=== PATIENT | female | born 1950 | race Caucasian/White ===

== ENCOUNTER → 2018-04-08 07:23 | Outpatient (CLI) | payer MEDICARE ==
[~2018-04-08 07:23] MED LIST: BAYER CHEWABLE81 MG PO; BENTYL10 MG PO; BREO ELLIPTA 21 EACH; CALTRATE 600 M600 M1 PO; CELEXA20 MG PO; HYDROCODONE-APA1 TAB PO; IPRAT-ALBUT 0.5-3 ML UPD; K-TAB10 MEQ PO; KLONOPIN0.5 MG PO; KLOR-CON20 MEQ/PKT PO; METHOTREXATE2.5 MG PO; METOPROLOL TART25 MG PO; NORVASC5 MG PO; PRAVASTATIN SOD10 MG PO; PROTONIX20 MG PO; ROBAXIN-750750 MG PO; SINGULAIR10 MG PO; VITAMIN D31000 UNIT PO
[2018-05-16 13:03] VITALS: BMI 19.2
== END | disposition home or self-care (01) ==
LOC: D.CT 07:23
DX: R74.8 Abnormal levels of other serum enzymes (principal)

== ENCOUNTER 2018-04-13 14:42 | Inpatient (IN) | payer MEDICARE ==
[~2018-04-13] VITALS: Ht 157.5 cm; Wt 47.3 kg
--- NOTE | ~2018-04-13 | EC ---
PATIENT:TOMMY NAVARRETE DATE OF SERVICE: 04/14/18 SEX: F MEDICAL RECORD: [id number] DATE OF : 54 LOCATION:D.M2 D.214 AGE OF PATIENT: 67 ADMISSION DATE: 04/14/18 REFERRING PHYSICIAN: INTERPRETING PHYSICIAN: ESTHER CASILLAS MD ECHOCARDIOGRAM REPORT ECHO CHARGES 4 ECHO COMPLETE Date: 04/15 CLINICAL DIAGNOSIS: PRE-OP EVAL ECHOCARDIOGRAPHIC MEASUREMENTS (adult normal given) AC root (d.<3.7cm) 3.2 cm LV Septum d (<1.2 cm> 1.3 cm Valve Excursion 2.0 cm LV Septum (systole) 1.5 cm Left Atria (s.<4.0cm> 3.6 cm LVPW d(<1.2cm) 1.2 cm RV (d.<2.3cm) 2.7 cm LVPW (sytole) 1.4 cm LV diastole(<5.6CM) 4.9 cm MV E-F(>70mm/sec) cm LV systole 3.5 cm LVOT Diameter 2.0 cm MV exc.(>10mm) 1.8 cm Est.ejection fraction (50-75%) % DOPPLER: LVIT cm/sec A 70.0 cm/sec E 84.0 cm/sec LA cm/sec RVSP 30 mmHg LVOT 94 cm/sec AOP1/2T m/s Asc. Ao 109 cm/sec RVOT 66 cm/sec RA 76 cm/sec PA cm/sec AV Gradient Peak 4.79 mmHg AV Mean 2.11 mmHg AV Area 2.6 cm MV Gradient Peak 4.97 mmHg MV Mean 1.90 mmHg MV Area cm COMMENTS: Mobile Homes Repairer: Maureen ADRIAN Fashion Editor: 2 Dr. Melton TAPE# PACS Pericardial Effusion N DATE OF SERVICE: 04/15/2018 Echocardiogram FINDINGS: 1. Left ventricular chamber size is within normal limits. Left ventricular systolic function is normal. Overall ejection fraction estimated at 60%. 2. Left atrium, right atrium, and right ventricular chamber sizes are within normal limits. 3. Valvular structures have normal structure and motion. ECHOCARDIOGRAM REPORT [id number] TOMMY NAVARRETE 4. Doppler interrogation reveals mild mitral regurgitation, mild tricuspid regurgitation, no other valvular insufficiency or stenosis. 5. No evidence of pericardial effusion or left ventricular thrombus. 6. Pulmonary systolic pressure is normal, estimated 30 mmHg. TRANSINT:[id number] Voice Confirmation ID: [id number] DOCUMENT ID: [id number] SETHER CASILLAS MD at 1710 CC: [id number] DICTATION DATE: 04/15/18 1356 PROFILER HAND: 04/15/18 1424 DIS IN 04/15/18 [facility] [address] [facility], [facility]
[2018-04-13] MEDS ORDERED: IPRAT-ALBUT 0.5-3 ML UPD (15:11)
[2018-04-13] MEDS ORDERED: BREO ELLIPTA 21 EACH (15:12)
[2018-04-13] MEDS ORDERED: CALTRATE 600 M600 M1 PO (15:13)
[2018-04-13] MEDS ORDERED: BAYER CHEWABLE81 MG PO (15:13)
[2018-04-13] MEDS ORDERED: VITAMIN D31000 UNIT PO (15:14)
[2018-04-13] MEDS ORDERED: BENTYL10 MG PO (15:15)
[2018-04-13] MEDS ORDERED: K-TAB10 MEQ PO (15:16)
[2018-04-13] MEDS ORDERED: KLONOPIN0.5 MG PO (15:16)
[2018-04-13 16:24] LABS: BASOPHILS 0.7 % (0-2); EOSINOPHILS 1.2 % (0-7); HEMATOCRIT 29.4 % (36.0-48.0); HEMOGLOBIN 10.2 g/dL (12-16); IMMATURE GRANULOCYTES 0.4 % (0-5); LYMPHOCYTES 17.2 % (15-50); MCH 30.5 pg (26.0-34.0); MCHC 34.7 g/dL (31.0-37.0); MEAN PLATELET VOLUME 10.9 fL (7.4-10.4); MONOCYTES 12.6 % (2-11); NEUTROPHILS 67.9 % (40-80); PLATELET COUNT 326 10x3/uL (130-400); RBC 3.34 10x6/uL (4.00-5.40); RDW 17.9 % (11.5-14.5); WBC 7.7 10x3/uL (4.8-10.8)
[2018-04-13 16:33] LABS: APTT 30.1 SECONDS (22.8-39.4); INR 1.21 (0.85-1.17); PROTIME 14.9 SECONDS (11.6-15.0)
[2018-04-13 16:38] LABS: ALBUMIN 2.2 g/dL (3.4-5.0); ALKALINE PHOSPHATASE 869 U/L (46-116); ALT (SGPT) 87 U/L (10-68); AMYLASE - SERUM 44 U/L (25-115); BILIRUBIN - TOTAL 15.79 mg/dL (0.2-1.3); CALC OSMOLALITY 276 mosm/kg (275-300); CALCIUM 8.8 mg/dL (8.5-10.1); CARBON DIOXIDE 29.2 mmol/L (21.0-32.0); CHLORIDE - SERUM 101 mmol/L (98-107); CREATININE - SERUM 0.6 mg/dL (0.6-1.3); GLUCOSE 123 mg/dL (74-106); LIPASE 231 U/L (73-393); PROTEIN - SERUM 6.5 g/dL (6.4-8.2); SODIUM 139 mmol/L (136-145); UREA NITROGEN 6 mg/dL (7-18); eGFR NON AFRICAN AMERICAN > 90 mL/min (90-120)
[2018-04-13 16:43] LABS: POTASSIUM - SERUM 2.7 mmol/L (3.5-5.1)
[2018-04-13 17:15] VITALS: BP 120/59; BMI 19.1
[2018-04-13 20:00] VITALS: BP 152/68
[2018-04-13 21:55] LABS: APPEARANCE CLEAR (CLEAR); BILIRUBIN 3+ (NEGATIVE); COLOR DK YELLOW (YELLOW); GLUCOSE NEGATIVE (NEGATIVE); KETONE NEGATIVE (NEGATIVE); NITRITE NEGATIVE (NEGATIVE); PROTEIN NEGATIVE (NEGATIVE); UROBILINOGEN NORMAL (NORMAL)
[2018-04-13 21:56] LABS: BACTERIA FEW /hpf (NONE SEEN); EPITHELIAL CELLS OCC /hpf (0-5); WHITE CELLS - URINE 0-5 /hpf (0-5)
[2018-04-14] VITALS (7 sets, daily range): BP systolic 108–152; BP diastolic 58–80; Ht 157.5 cm; Wt 47.3 kg
[2018-04-14 06:18] LABS: BASOPHILS 0.6 % (0-2); EOSINOPHILS 1.7 % (0-7); HEMATOCRIT 29.4 % (36.0-48.0); IMMATURE GRANULOCYTES 0.4 % (0-5); LYMPHOCYTES 26.3 % (15-50); MCV 88.3 fL (80.0-100.0); MEAN PLATELET VOLUME 11.2 fL (7.4-10.4); MONOCYTES 10.4 % (2-11); NEUTROPHILS 60.6 % (40-80); PLATELET COUNT 351 10x3/uL (130-400); RBC 3.33 10x6/uL (4.00-5.40); RDW 18.1 % (11.5-14.5); WBC 8.5 10x3/uL (4.8-10.8)
[2018-04-14 06:38] LABS: INR 1.17 (0.85-1.17); PROTIME 14.5 SECONDS (11.6-15.0)
[2018-04-14 07:04] LABS: ALBUMIN 2.1 g/dL (3.4-5.0); ALKALINE PHOSPHATASE 856 U/L (46-116); ALT (SGPT) 76 U/L (10-68); CALCIUM 8.6 mg/dL (8.5-10.1); CARBON DIOXIDE 24.5 mmol/L (21.0-32.0); CHLORIDE - SERUM 106 mmol/L (98-107); GLUCOSE 93 mg/dL (74-106); PROTEIN - SERUM 6.2 g/dL (6.4-8.2); SODIUM 140 mmol/L (136-145)
[2018-04-14 07:09] LABS: CALC OSMOLALITY 275 mosm/kg (275-300); CREATININE - SERUM 0.4 mg/dL (0.6-1.3); POTASSIUM - SERUM 3.3 mmol/L (3.5-5.1); UREA NITROGEN 4 mg/dL (7-18); eGFR NON AFRICAN AMERICAN > 90 mL/min (90-120)
[2018-04-15 01:31] VITALS: BP 116/54
[2018-04-15 06:06] VITALS: BP 118/58
[2018-04-15 06:08] LABS: BASOPHILS 0.5 % (0-2); EOSINOPHILS 2.6 % (0-7); HEMATOCRIT 26.7 % (36.0-48.0); IMMATURE GRANULOCYTES 0.5 % (0-5); LYMPHOCYTES 27.6 % (15-50); MCH 30.4 pg (26.0-34.0); MCHC 33.7 g/dL (31.0-37.0); MCV 90.2 fL (80.0-100.0); MEAN PLATELET VOLUME 11.5 fL (7.4-10.4); MONOCYTES 11.1 % (2-11); NEUTROPHILS 57.7 % (40-80); PLATELET COUNT 336 10x3/uL (130-400); RBC 2.96 10x6/uL (4.00-5.40); RDW 18.1 % (11.5-14.5); WBC 7.9 10x3/uL (4.8-10.8)
[2018-04-15 06:31] LABS: ALKALINE PHOSPHATASE 714 U/L (46-116); ALT (SGPT) 56 U/L (10-68); CALC OSMOLALITY 274 mosm/kg (275-300); CALCIUM 8.7 mg/dL (8.5-10.1); CARBON DIOXIDE 25.4 mmol/L (21.0-32.0); CHLORIDE - SERUM 108 mmol/L (98-107); CREATININE - SERUM 0.4 mg/dL (0.6-1.3); GLUCOSE 80 mg/dL (74-106); POTASSIUM - SERUM 3.4 mmol/L (3.5-5.1); PROTEIN - SERUM 5.8 g/dL (6.4-8.2); SODIUM 140 mmol/L (136-145); UREA NITROGEN 3 mg/dL (7-18); eGFR NON AFRICAN AMERICAN > 90 mL/min (90-120)
[2018-04-15] MEDS ORDERED: METHOTREXATE2.5 MG PO (07:43)
[2018-04-15] MEDS ORDERED: METOPROLOL TART25 MG PO (07:44)
[2018-04-15] MEDS ORDERED: PRAVASTATIN SOD10 MG PO (07:44)
[2018-04-15] MEDS ORDERED: HYDROCODONE-APA1 TAB PO (07:45)
[2018-04-15] MEDS ORDERED: CELEXA20 MG PO (07:45)
[2018-04-15] MEDS ORDERED: ROBAXIN-750750 MG PO (07:46)
[2018-04-15] MEDS ORDERED: NORVASC5 MG PO (07:47)
[2018-04-15] MEDS ORDERED: PROTONIX20 MG PO (07:47)
[2018-04-15 07:54] VITALS: BP 122/68
[2018-04-15 11:20] LABS: ALPHA FETOPROTEIN -(TUMOR MRK) 3.4 ng/mL (0.0-8.3); CEA 6.3 ng/mL (0.0-4.7)
[2018-04-15 11:44] VITALS: BP 123/70
[2018-04-16 12:17] LABS: HEPATITIS C ANTIBODY 0.1 (0.0-0.9)
[2018-05-12] MEDS ORDERED: KLOR-CON20 MEQ/PKT PO (12:04)
[2018-05-12] MEDS ORDERED: SINGULAIR10 MG PO (12:08)
== END 2018-04-15 15:12 | disposition home or self-care (01) | DRG 439 ==
LOC: D.M2 14:42 → OBSVTIME 14:42 → D.M2 14:42
PROVIDERS: Family Medicine; Internal Medicine Gastroenterology; Internal Medicine Hematology & Oncology; Internal Medicine Nephrology
PROC: 0F798DZ Dilation of Common Bile Duct with Intraluminal Device, Via Natural or Artificial Opening Endoscopic (ICD-10-PCS; 2018-04-14)
PROC: 0FBC8ZX Excision of Ampulla of Vater, Via Natural or Artificial Opening Endoscopic, Diagnostic (ICD-10-PCS; principal; 2018-04-14 14:30)
DX: D13.6 Benign neoplasm of pancreas (principal); R17 Unspecified jaundice; E80.6 Other disorders of bilirubin metabolism; J44.9 Chronic obstructive pulmonary disease, unspecified; D64.9 Anemia, unspecified; E87.6 Hypokalemia; K21.9 Gastro-esophageal reflux disease without esophagitis; J30.9 Allergic rhinitis, unspecified; I08.1 Rheumatic disorders of both mitral and tricuspid valves

== ENCOUNTER 2018-05-13 07:15 | Inpatient (IN) | payer MEDICARE ==
[2018-05-12 12:51] LABS: BASOPHILS 0.6 % (0-2); HEMATOCRIT 32.8 % (36.0-48.0); HEMOGLOBIN 11.1 g/dL (12-16); IMMATURE GRANULOCYTES 0.2 % (0-5); LYMPHOCYTES 29.2 % (15-50); MCH 32.1 pg (26.0-34.0); MCHC 33.8 g/dL (31.0-37.0); MCV 94.8 fL (80.0-100.0); MEAN PLATELET VOLUME 9.9 fL (7.4-10.4); MONOCYTES 7.8 % (2-11); NEUTROPHILS 60.2 % (40-80); PLATELET COUNT 290 10x3/uL (130-400); RBC 3.46 10x6/uL (4.00-5.40); RDW 14.8 % (11.5-14.5); WBC 8.4 10x3/uL (4.8-10.8)
[2018-05-12 13:08] LABS: ALBUMIN 2.7 g/dL (3.4-5.0); ALKALINE PHOSPHATASE 349 U/L (46-116); ALT (SGPT) 20 U/L (10-68); BILIRUBIN - TOTAL 1.42 mg/dL (0.2-1.3); CALC OSMOLALITY 279 mosm/kg (275-300); CALCIUM 8.7 mg/dL (8.5-10.1); CARBON DIOXIDE 28.9 mmol/L (21.0-32.0); CHLORIDE - SERUM 105 mmol/L (98-107); CREATININE - SERUM 0.6 mg/dL (0.6-1.3); GLUCOSE 98 mg/dL (74-106); POTASSIUM - SERUM 3.9 mmol/L (3.5-5.1); PROTEIN - SERUM 6.8 g/dL (6.4-8.2); SODIUM 142 mmol/L (136-145); UREA NITROGEN 4 mg/dL (7-18); eGFR NON AFRICAN AMERICAN > 90 mL/min (90-120)
[2018-05-13] VITALS (18 sets, daily range): BP systolic 65–160; BP diastolic 46–84; BMI 17.9; BMI 18.7
[~2018-05-13] VITALS: Ht 157.5 cm; Wt 79.8 kg
--- NOTE | ~2018-05-13 | DS ---
PATIENT:TOMMY NAVARRETE :54 MEDICAL RECORD: [id number] DISCHARGE SUMMARY ADMISSION DATE: 05/13/18 DISCHARGE DATE: 05/18/18 DATE OF ADMISSION: 05/13/2018 DATE OF : 05/18/2018 ADMISSION DIAGNOSES: 1. Pancreatic cancer. 2. Chronic obstructive pulmonary disease. DISCHARGE DIAGNOSES: 1. Pancreatic cancer. 2. Chronic obstructive pulmonary disease. 3. Shock liver. 4. Septic shock. 5. Coagulopathy secondary to shock liver. 6. Thrombocytopenia. 7. Bacteremia. 8. Acute renal failure. 9. Acute respiratory failure. PROCEDURE: Whipple procedure on 05/13/2018. CONSULTATIONS: Pulmonary, nephrology, family practice, and anesthesia. REPORT OF HOSPITALIZATION: The patient was admitted to the intensive care unit status post a Whipple procedure for pancreatic head cancer. During the procedure, the patient's the hepatic artery proper had to be ligated secondary to what appeared to be tumor involvement. Postoperatively, the patient had shock liver and eventually developed bacteremia secondary to the shock liver, which caused septic shock. The patient went into acute renal failure and respiratory failure. The patient had a known history of lung disease with COPD. At this point, the patient was intubated and maintained on the ventilator and was stable from that standpoint. The patient's condition worsened quickly, but eventually had leveled out. She was at one point on vasopressin and Levophed at maxed out doses, but we were able to wean these completely off. The patient was noted to have blood cultures with gram-negative rods and she was treated with cefepime for the bacteremia. Her fevers eventually resolved. Her blood pressure stabilized. Her liver enzymes got markedly elevated, but these were coming down sharply and were getting back towards normal. The patient had coagulopathy secondary to the shock liver, which was treated with FFP. The coagulopathy appeared to be improving slowly. The patient did have acute renal failure, which never did improve throughout the hospitalization. She was oliguric to anuric. Her potassium was staying within normal range though. The patient was also noted to have a severe metabolic acidosis with elevated lactic acid levels of greater than 20. The patient was given a bicarb drip and her pH level was normalized with the bicarb drip and with manipulation of the ventilator. The patient was also noted to have a decreased platelet count, which was thought might be related to sepsis or possibly Protonix. The Protonix was stopped. She was placed on Pepcid and the platelet count slowly started to rise back up. The family eventually decided that they just wanted to withdraw care and after speaking with some of the other physicians, decided to perform a terminal extubation. On 05/18/2018, the patient was terminally extubated and DISCHARGE SUMMARY REPORT [id number] LANDONTOMMY Miryam she . TRANSINT:[id number] Voice Confirmation ID: [id number] DOCUMENT ID: [id number] HUGO SYKES MD at 1041 CC: [id number] DICTATION DATE: 06/22/18 0820 DEPUTY ATTORNEY GENERAL: 06/22/18 1334 DIS IN 05/18/18 [id number] [place] [address]
--- NOTE | ~2018-05-13 | OP ---
PATIENT NAME: TOMMY NAVARRETE MEDICAL RECORD: [id number] :54 LOCATION:.[facility] D.2301 ADMISSION DATE:05/13/18 SURGEON: EDWARDO SYKES MD DATE OF OPERATION: 05/13/2018 PREOPERATIVE DIAGNOSES: 1. Pancreatic mass. 2. COPD. 3. Osteoporosis. 4. Mitral regurgitation. 5. Tricuspid regurgitation. POSTOPERATIVE DIAGNOSES: 1. Pancreatic cancer. 2. COPD. 3. Osteoporosis. 4. Mitral regurgitation. 5. Tricuspid regurgitation. PROCEDURES: 1. Whipple procedure. 2. Small bowel resection. 3. Right subclavian vein central venous line placement. SURGEON: Edwardo Sykes MD ASSISTANTS: 1. Amber Valenzuela, HARRY 2. GERARD Morales student REPORT OF OPERATION: The patient's right chest was prepped and draped in sterile fashion. A needle was used to cannulate the right subclavian vein and a guidewire was advanced with ease. Over this wire, a dilator was placed followed by the triple-lumen catheter. The catheter aspirated nonpulsatile dark blood and flushed easily in all 3 ports. This was sutured into place with 3-0 silk ties and dressed appropriately. At this point, the patient's abdomen was prepped and draped in sterile fashion. A midline incision was performed from the sternum down to just below the patient's umbilicus. Electrocautery was used to dissect through the subcutaneous tissues into the abdominal cavity. Once in the abdomen, we extended the incision superiorly and inferiorly and took down any adhesions that were present to the anterior abdominal wall. Most of these adhesions were of the omentum to the previous scar in the midline. The patient's falciform ligament was then opened up and was high ligated with 3-0 silk tie at the liver. The adhesions were taken down on the hepatic flexure. As we took down these adhesions, we were able to dissect out the patient's duodenum and performed a Wisam maneuver. At this point, we could feel that we could get posterior to the mass and it was not adherent to any structures posteriorly. At this point, we did a dome down approach removal of the gallbladder. We used electrocautery to take the gallbladder off the liver bed. The cystic artery and cystic duct were found and clipped proximally and distally and ligated. The liver bed was treated with electrocautery to stop any bleeding that was present. At this point, we came around the patient's portal vein and common bile duct. The common bile duct was dissected free. Once we had it completely dissected free, it was ligated just above the cystic duct. This was done using electrocautery. We then continued our dissection laterally until we OPERATIVE REPORT [id number] TOMMY NAVARRETE dissected out the patient's hepatic vessels and the portal vein. We then elevated the superior aspect of the pancreas off of the portal vein. We then opened up the lesser curvature of the stomach. I was able to get into the lesser sac. This was performed with EnSeal device. The inferior aspect of the pancreas was freed up using electrocautery and we were able to find the portal vessel. We dissected inferior to the portal vessel and eventually we were able to get completely over the portal vessel underneath the pancreas. At this point, the pancreas was transected using electrocautery. The stomach was then transected, performing an antrectomy using a 70 green load MANDY stapler. We began our dissection of the small bowel just distal to the ligament of Treitz. This ligament of Treitz was taken down using electrocautery. We eventually transected the small bowel using a 70 blue load MANDY stapler and took down the mesentery using the EnSeal device. We continued this dissection until we are able to eviscerate the small bowel through the ligament of Treitz into the lesser sac. We then started our dissection of the posterior aspect of the mass, trying to take it off of the portal vein. At this point, we ran into a lot of adhesions. The patient also had some large lymphatic tissue that was present. Some of the lymph nodes from the periportal area were taken off. As we dissected down to the portal vein, we actually had such dense adhesions and thickening of the tissue that we had to shave off a piece of the portal vein. This was eventually repaired using a 30 white load TA stapler and 7-0 Prolene sutures. This discontinued any bleeding from that area. The pancreatic lesion appeared to encompass portion of the mesenteric veins. In order to get this tissue off, we had to ligate 2 of these veins. We continued our dissection superiorly and the gastroduodenal artery was dissected free and ligated. As we continued our dissection down, we eventually were able to get the remaining celiac trunk off of the surrounding vessels, and at this point, we were able to completely free up the mass from the surrounding tissues. Any bleeding vessels that were encountered were treated with clips, ties, or electrocautery. We sent the mass off to pathology, where they inspected the biliary duct and the pancreatic margins. 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 New margin of pancreas was taken after we removed about another centimeter of pancreatic tissue. This was marked appropriately and sent off for permanent specimen. There was some inflammatory tissue which appeared to be enlarged lymph nodes present in the area. As I tried to dissect one of the lymph nodes off of the celiac trunk, there was an injury to the trunk. I was able to contain this bleeding and repaired the opening in the vessel using a 7-0 Prolene; but after we released the clamps, we could see that there were multiple other areas where there was injury to the vessel, so we ended up just ligating this vessel. At this point, we irrigated out the wound thoroughly with normal saline and took care to make sure there was no sign of any active bleeding. The small bowel was then pulled up in a retrocolic fashion, and using a 70 blue load MANDY stapler, we performed gastrojejunostomy on the posterior aspect of the stomach. The enterotomy was closed off with TA-30 stapler and the suture lines were oversewn with Lemberted 3-0 silk. We then transected the small bowel about 40 cm distally and pulled up the small bowel and performed a jejunojejunostomy in a [id number] fashion using a 70 blue load MANDY stapler. The enterotomies were closed with 30 blue load TA stapler and oversewn with Lemberted 3-0 silk. At this point, we noticed that this segment of bowel from the stomach to the jejunostomy appeared to be very dusky with petechia. As we looked down at the vasculature, I could feel a palpable arterial pulse, but the venous structures which were draining this area where the vessels that had been tied off previously. We went ahead and just released the anastomoses and excised this section of tissue and sent it off for permanent specimen as I did not feel that this would be a viable section of small bowel. OPERATIVE REPORT [id number] TOMMY NAVARRETE We then brought the end of the small bowel up and performed a handsewn 2-layer gastrojejunostomy with internal layer of 3-0 Vicryl and external layer of Lemberted 3-0 silk. This again was done in a retrocolic fashion. We then transected the area of small bowel where the jejunojejunostomy had been performed and we then performed reanastomosis of the jejunojejunostomy distally using a 70 blue load TA stapler. The enterotomies were then closed with a 30 blue load TA stapler. I oversewed the suture lines using Lemberted 3-0 silk. This bowel all appeared to be viable. The [place] limb of the small bowel was then brought in a retrocolic fashion and a small opening was made in the small bowel and hepaticojejunostomy was performed using multiple interrupted 4-0 PDS's. A 2-layer anastomosis was performed for pancreaticojejunostomy using an internal layer of interrupted 5-0 Monocryl and external layer of horizontal mattress 3-0 silk. At the conclusion of this, we irrigated out the wound and checked to make sure there was no sign of any active bleeding. Aoy12-Qplpki Estuardo drains were brought in through the bilateral upper quadrants with the right upper quadrant drain placed posterior to all of the anastomoses and the left upper quadrant drain placed anterior to all of the anastomoses. These were sutured into place with 4-0 Prolene. We inspected the abdomen one last time and irrigated out thoroughly with normal saline. At this point, the midline fascia was closed with running #1 loop PDS's times 2 and the skin was closed with brent. COMPLICATIONS: Small bowel ischemia, requiring small bowel resection. CONDITION: Stable. ANESTHESIA: General endotracheal and epidural. BLOOD LOSS: 500 mL. The patient will be transferred to the intensive care unit. TRANSINT:[id number] Voice Confirmation ID: [id number] DOCUMENT ID: [id number] EDWARDO SYKES MD at 2000 CC: TAYLOR MCWILLIAMS and LYLE OROPEZA DO [id number] DICTATION DATE: 05/13/181942 RAILROAD SHOP INSPECTOR: 05/13/182030 ADM IN [facility] [address] [place] [address]
[2018-05-13] MEDS ORDERED: BENTYL10 MG PO (08:47)
[2018-05-13 20:36] LABS: BASOPHILS 0 % (0-2); EOSINOPHILS 0.2 % (0-7); HEMATOCRIT 34.6 % (36.0-48.0); HEMOGLOBIN 11.4 g/dL (12-16); IMMATURE GRANULOCYTES 0.2 % (0-5); LYMPHOCYTES 17.4 % (15-50); MCH 30.7 pg (26.0-34.0); MCHC 32.9 g/dL (31.0-37.0); MCV 93.3 fL (80.0-100.0); MEAN PLATELET VOLUME 10.3 fL (7.4-10.4); MONOCYTES 5.2 % (2-11); PLATELET COUNT 174 10x3/uL (130-400); RBC 3.71 10x6/uL (4.00-5.40); RDW 16.2 % (11.5-14.5); WBC 5.8 10x3/uL (4.8-10.8)
[2018-05-13 20:46] LABS: APTT 39.1 SECONDS (22.8-39.4); INR 1.55 (0.85-1.17); PROTIME 18.1 SECONDS (11.6-15.0)
[2018-05-13 20:53] LABS: ALKALINE PHOSPHATASE 185 U/L (46-116); BILIRUBIN - TOTAL 1.89 mg/dL (0.2-1.3); CALC OSMOLALITY 294 mosm/kg (275-300); CALCIUM 7.3 mg/dL (8.5-10.1); CARBON DIOXIDE 22.9 mmol/L (21.0-32.0); CREATININE - SERUM 0.5 mg/dL (0.6-1.3); GLUCOSE 140 mg/dL (74-106); POTASSIUM - SERUM 4.1 mmol/L (3.5-5.1); SODIUM 149 mmol/L (136-145); UREA NITROGEN 5 mg/dL (7-18); eGFR NON AFRICAN AMERICAN > 90 mL/min (90-120)
[2018-05-13 20:55] LABS: ALBUMIN 1.5 g/dL (3.4-5.0); ALT (SGPT) 148 U/L (10-68); CHLORIDE - SERUM 117 mmol/L (98-107); PROTEIN - SERUM 4.2 g/dL (6.4-8.2)
[2018-05-14] VITALS (22 sets, daily range): BP systolic 55–196; BP diastolic 37–82; BMI 19.2
[2018-05-14 00:43] LABS: HEMATOCRIT 31.5 % (36.0-48.0); HEMOGLOBIN 10.2 g/dL (12-16)
[2018-05-14 04:28] LABS: BASOPHILS 0.3 % (0-2); EOSINOPHILS 0 % (0-7); HEMATOCRIT 27.3 % (36.0-48.0); HEMOGLOBIN 8.9 g/dL (12-16); IMMATURE GRANULOCYTES 0.3 % (0-5); LYMPHOCYTES 16.5 % (15-50); MCH 30.5 pg (26.0-34.0); MCHC 32.6 g/dL (31.0-37.0); MCV 93.5 fL (80.0-100.0); MEAN PLATELET VOLUME 10.1 fL (7.4-10.4); MONOCYTES 8.8 % (2-11); NEUTROPHILS 74.1 % (40-80); RDW 17.3 % (11.5-14.5)
[2018-05-14 04:29] LABS: PLATELET COUNT 116 10x3/uL (130-400); RBC 2.92 10x6/uL (4.00-5.40); WBC 3.6 10x3/uL (4.8-10.8)
[2018-05-14 04:44] LABS: APTT 49.9 SECONDS (22.8-39.4); INR 2.43 (0.85-1.17); PROTIME 25.8 SECONDS (11.6-15.0)
[2018-05-14 04:57] LABS: ALBUMIN 1.2 g/dL (3.4-5.0); ALKALINE PHOSPHATASE 139 U/L (46-116); BILIRUBIN - TOTAL 1.77 mg/dL (0.2-1.3); CHLORIDE - SERUM 114 mmol/L (98-107); CREATININE - SERUM 0.6 mg/dL (0.6-1.3); MAGNESIUM - SERUM 1.3 mg/dL (1.8-2.4); PHOSPHOROUS 3.2 mg/dL (2.5-4.9); PROTEIN - SERUM 3.2 g/dL (6.4-8.2); SODIUM 146 mmol/L (136-145); UREA NITROGEN 5 mg/dL (7-18); eGFR NON AFRICAN AMERICAN > 90 mL/min (90-120)
[2018-05-14 05:07] LABS: ALT (SGPT) 358 U/L (10-68); CALC OSMOLALITY 285 mosm/kg (275-300); CALCIUM 6.7 mg/dL (8.5-10.1); GLUCOSE 65 mg/dL (74-106)
[2018-05-14 14:10] LABS: BASOPHILS 0.2 % (0-2); EOSINOPHILS 0.2 % (0-7); HEMATOCRIT 22.6 % (36.0-48.0); IMMATURE GRANULOCYTES 0.2 % (0-5); LYMPHOCYTES 11.7 % (15-50); MCH 30.4 pg (26.0-34.0); MCHC 32.3 g/dL (31.0-37.0); MCV 94.2 fL (80.0-100.0); MEAN PLATELET VOLUME 10.8 fL (7.4-10.4); MONOCYTES 6.2 % (2-11); NEUTROPHILS 81.5 % (40-80); PLATELET COUNT 121 10x3/uL (130-400); RDW 17.7 % (11.5-14.5)
[2018-05-14 14:26] LABS: HEMOGLOBIN 7.3 g/dL (12-16); INR 1.71 (0.85-1.17); PROTIME 19.6 SECONDS (11.6-15.0); WBC 5.3 10x3/uL (4.8-10.8)
[2018-05-14 14:27] LABS: APTT 39.3 SECONDS (22.8-39.4)
[2018-05-14 14:51] LABS: ANION GAP 17.7 mmol/L (8-16); BILIRUBIN - TOTAL 1.55 mg/dL (0.2-1.3); MAGNESIUM - SERUM 1.6 mg/dL (1.8-2.4); PHOSPHOROUS 3.4 mg/dL (2.5-4.9); POTASSIUM - SERUM 3.7 mmol/L (3.5-5.1)
[2018-05-14 14:54] LABS: ALBUMIN 1.7 g/dL (3.4-5.0); CALCIUM 8.4 mg/dL (8.5-10.1); CREATININE - SERUM 1.3 mg/dL (0.6-1.3)
[2018-05-15] VITALS (73 sets, daily range): BP systolic 69–123; BP diastolic 25–87
[2018-05-15 04:59] LABS: MCH 30.3 pg (26.0-34.0); MCHC 34.3 g/dL (31.0-37.0); MEAN PLATELET VOLUME 11.3 fL (7.4-10.4); PLATELET COUNT 111 10x3/uL (130-400); RDW 17.3 % (11.5-14.5)
[2018-05-15 05:03] LABS: HEMATOCRIT 28.9 % (36.0-48.0); HEMOGLOBIN 9.9 g/dL (12-16); MCV 88.4 fL (80.0-100.0); RBC 3.27 10x6/uL (4.00-5.40); WBC 2.5 10x3/uL (4.8-10.8)
[2018-05-15 05:23] LABS: INR 2.19 (0.85-1.17); PROTIME 23.7 SECONDS (11.6-15.0)
[2018-05-15 05:28] LABS: ALBUMIN 1.6 g/dL (3.4-5.0); BILIRUBIN - TOTAL 2.28 mg/dL (0.2-1.3); CALCIUM 8.5 mg/dL (8.5-10.1); CREATININE - SERUM 1.6 mg/dL (0.6-1.3); POTASSIUM - SERUM 3.2 mmol/L (3.5-5.1); PROTEIN - SERUM 4.2 g/dL (6.4-8.2)
[2018-05-15 06:06] LABS: MAGNESIUM - SERUM 2.3 mg/dL (1.8-2.4)
[2018-05-15 06:07] LABS: ANION GAP 13.7 mmol/L (8-16); CARBON DIOXIDE 20.5 mmol/L (21.0-32.0); PHOSPHOROUS 1.1 mg/dL (2.5-4.9)
[2018-05-15 06:52] LABS: LYMPHOCYTES 19 % (15-50); MONOCYTES 2 % (2-11); NEUTROPHILS 41 % (40-80); PLATELET ESTIMATE DECREASED
[2018-05-15 14:20] LABS: BASOPHILS 0.2 % (0-2); EOSINOPHILS 0.4 % (0-7); HEMATOCRIT 24.4 % (36.0-48.0); HEMOGLOBIN 8.2 g/dL (12-16); IMMATURE GRANULOCYTES 0.5 % (0-5); LYMPHOCYTES 10.7 % (15-50); MCH 29.9 pg (26.0-34.0); MCHC 33.6 g/dL (31.0-37.0); MCV 89.1 fL (80.0-100.0); MEAN PLATELET VOLUME 11.3 fL (7.4-10.4); MONOCYTES 5.3 % (2-11); NEUTROPHILS 82.9 % (40-80); RBC 2.74 10x6/uL (4.00-5.40); RDW 17.3 % (11.5-14.5)
[2018-05-15 14:25] LABS: PLATELET COUNT 64 10x3/uL (130-400); WBC 9.2 10x3/uL (4.8-10.8)
[2018-05-15 14:36] LABS: INR 2.11 (0.85-1.17)
[2018-05-15 14:37] LABS: APTT 56.2 SECONDS (22.8-39.4)
[2018-05-15 14:47] LABS: PLATELET ESTIMATE DECREASED
[2018-05-15 15:20] LABS: ALBUMIN 1.8 g/dL (3.4-5.0); ANION GAP 17.3 mmol/L (8-16); BILIRUBIN - TOTAL 2.02 mg/dL (0.2-1.3); CALCIUM 8.4 mg/dL (8.5-10.1); CARBON DIOXIDE 18.7 mmol/L (21.0-32.0); MAGNESIUM - SERUM 2.3 mg/dL (1.8-2.4)
[2018-05-15 15:34] LABS: CREATININE - SERUM 2.3 mg/dL (0.6-1.3)
[2018-05-15 23:50] LABS: HEMATOCRIT 20.6 % (36.0-48.0)
[2018-05-15 23:52] LABS: HEMOGLOBIN 6.7 g/dL (12-16)
[2018-05-16] VITALS (93 sets, daily range): BP systolic 73–154; BP diastolic 51–95; Ht 157.5 cm; Wt 79.8 kg
[2018-05-16 05:49] LABS: APTT 76.6 SECONDS (22.8-39.4); PROTIME 30.4 SECONDS (11.6-15.0)
[2018-05-16 06:04] LABS: BASOPHILS 0.7 % (0-2); EOSINOPHILS 0.8 % (0-7); IMMATURE GRANULOCYTES 7.6 % (0-5); LYMPHOCYTES 11.4 % (15-50); MCH 29.7 pg (26.0-34.0); MCHC 30.7 g/dL (31.0-37.0); MEAN PLATELET VOLUME 13.3 fL (7.4-10.4); NEUTROPHILS 75.5 % (40-80); WBC 10.9 10x3/uL (4.8-10.8)
[2018-05-16 06:06] LABS: ALBUMIN 1.7 g/dL (3.4-5.0); BILIRUBIN - TOTAL 3.48 mg/dL (0.2-1.3); CALCIUM 7.4 mg/dL (8.5-10.1); CARBON DIOXIDE 15.1 mmol/L (21.0-32.0); MAGNESIUM - SERUM 2.3 mg/dL (1.8-2.4); PROTEIN - SERUM 4.1 g/dL (6.4-8.2)
[2018-05-16 06:07] LABS: PHOSPHOROUS 7.5 mg/dL (2.5-4.9)
[2018-05-16 06:08] LABS: ANION GAP 20.5 mmol/L (8-16); CREATININE - SERUM 3.2 mg/dL (0.6-1.3); POTASSIUM - SERUM 5.6 mmol/L (3.5-5.1)
[2018-05-16 06:15] LABS: HEMATOCRIT 35.2 % (36.0-48.0); HEMOGLOBIN 10.8 g/dL (12-16); MCV 96.7 fL (80.0-100.0); RBC 3.64 10x6/uL (4.00-5.40)
[2018-05-16 06:16] LABS: PLATELET COUNT 32 10x3/uL (130-400)
[2018-05-16 10:41] LABS: CREATINE KINASE 995 UL (21-215)
[2018-05-16 10:42] LABS: CKMB 8.1 U/L (0.0-3.6)
[2018-05-16 16:22] LABS: BASOPHILS 1.6 % (0-2); EOSINOPHILS 0.5 % (0-7); HEMATOCRIT 28.9 % (36.0-48.0); IMMATURE GRANULOCYTES 8.7 % (0-5); LYMPHOCYTES 16.7 % (15-50); MCHC 31.1 g/dL (31.0-37.0); MCV 96.3 fL (80.0-100.0); MEAN PLATELET VOLUME 12.8 fL (7.4-10.4); MONOCYTES 5.4 % (2-11); NEUTROPHILS 67.1 % (40-80); RDW 17.8 % (11.5-14.5)
[2018-05-16 16:23] LABS: PLATELET COUNT 17 10x3/uL (130-400)
[2018-05-16 16:26] LABS: INR 2.73 (0.85-1.17); PROTIME 28.2 SECONDS (11.6-15.0)
[2018-05-16 16:27] LABS: APTT 62.1 SECONDS (22.8-39.4)
[2018-05-16 16:38] LABS: ALBUMIN 1.9 g/dL (3.4-5.0); ANION GAP 30.6 mmol/L (8-16); BILIRUBIN - TOTAL 5.04 mg/dL (0.2-1.3); CALCIUM 7.6 mg/dL (8.5-10.1); CARBON DIOXIDE 16.2 mmol/L (21.0-32.0); CREATININE - SERUM 3.3 mg/dL (0.6-1.3); POTASSIUM - SERUM 4.8 mmol/L (3.5-5.1); PROTEIN - SERUM 4.3 g/dL (6.4-8.2)
[2018-05-16 16:42] LABS: PLATELET ESTIMATE DECREASED
[2018-05-17] VITALS (70 sets, daily range): BP systolic 90–125; BP diastolic 46–86
[2018-05-17 04:37] LABS: BASOPHILS 1.9 % (0-2); EOSINOPHILS 0.2 % (0-7); HEMATOCRIT 25.4 % (36.0-48.0); HEMOGLOBIN 8.1 g/dL (12-16); IMMATURE GRANULOCYTES 5.4 % (0-5); LYMPHOCYTES 13.5 % (15-50); MCH 29.9 pg (26.0-34.0); MCHC 31.9 g/dL (31.0-37.0); MCV 93.7 fL (80.0-100.0); MEAN PLATELET VOLUME 10.6 fL (7.4-10.4); MONOCYTES 4.6 % (2-11); NEUTROPHILS 74.4 % (40-80); PLATELET COUNT 58 10x3/uL (130-400); RBC 2.71 10x6/uL (4.00-5.40); RDW 17.7 % (11.5-14.5)
[2018-05-17 04:51] LABS: APTT 54.7 SECONDS (22.8-39.4); INR 2.73 (0.85-1.17); PROTIME 28.2 SECONDS (11.6-15.0)
[2018-05-17 05:05] LABS: D-DIMER-QUANTITATIVE 8.82 ug/mLFEU (0.20-0.54)
[2018-05-17 05:15] LABS: ALBUMIN 1.9 g/dL (3.4-5.0); BILIRUBIN - TOTAL 7.09 mg/dL (0.2-1.3); CALCIUM 7.4 mg/dL (8.5-10.1); CREATININE - SERUM 3.6 mg/dL (0.6-1.3); MAGNESIUM - SERUM 2.1 mg/dL (1.8-2.4); PROTEIN - SERUM 4.2 g/dL (6.4-8.2)
[2018-05-17 05:28] LABS: ANION GAP 27.7 mmol/L (8-16); CARBON DIOXIDE 22.9 mmol/L (21.0-32.0); PHOSPHOROUS 5.2 mg/dL (2.5-4.9); POTASSIUM - SERUM 3.6 mmol/L (3.5-5.1)
[2018-05-17 05:29] LABS: TROPONIN-I 1.527 ng/mL (0.000-0.060)
[2018-05-17 15:06] LABS: APTT 58.8 SECONDS (22.8-39.4)
[2018-05-17 15:17] LABS: INR 4.13 (0.85-1.17); PROTIME 39.1 SECONDS (11.6-15.0)
[2018-05-17 15:19] LABS: HEMATOCRIT 25.3 % (36.0-48.0); HEMOGLOBIN 8.4 g/dL (12-16); MCH 30.5 pg (26.0-34.0); MCHC 33.2 g/dL (31.0-37.0); MEAN PLATELET VOLUME 11.1 fL (7.4-10.4); PLATELET COUNT 40 10x3/uL (130-400); RBC 2.75 10x6/uL (4.00-5.40); RDW 17.5 % (11.5-14.5); WBC 24.3 10x3/uL (4.8-10.8)
[2018-05-17 15:23] LABS: LYMPHOCYTES 36 % (15-50); MONOCYTES 11 % (2-11); NEUTROPHILS 38 % (40-80); PLATELET ESTIMATE DECREASED
[2018-05-17 15:39] LABS: ALBUMIN 1.6 g/dL (3.4-5.0); BILIRUBIN - TOTAL 8.72 mg/dL (0.2-1.3); CREATININE - SERUM 3.9 mg/dL (0.6-1.3); POTASSIUM - SERUM 3.7 mmol/L (3.5-5.1); PROTEIN - SERUM 3.4 g/dL (6.4-8.2)
[2018-05-17 15:54] LABS: ANION GAP 24.4 mmol/L (8-16); CARBON DIOXIDE 30.3 mmol/L (21.0-32.0)
[2018-05-17 15:56] LABS: CALCIUM 6.9 mg/dL (8.5-10.1)
[2018-05-17 20:03] LABS: INR 1.89 (0.85-1.17); PROTIME 21.1 SECONDS (11.6-15.0)
[2018-05-18] VITALS (17 sets, daily range): BP systolic 71–111; BP diastolic 44–70
[2018-05-18 05:02] LABS: HEMATOCRIT 21.1 % (36.0-48.0); MCH 32.2 pg (26.0-34.0); MCHC 34.6 g/dL (31.0-37.0); MEAN PLATELET VOLUME 9.9 fL (7.4-10.4); NEUTROPHILS 88.7 % (40-80); PLATELET COUNT 93 10x3/uL (130-400); RBC 2.27 10x6/uL (4.00-5.40); RDW 17.3 % (11.5-14.5); WBC 27.2 10x3/uL (4.8-10.8)
[2018-05-18 05:03] LABS: APTT 44.1 SECONDS (22.8-39.4); HEMOGLOBIN 7.3 g/dL (12-16); INR 2.66 (0.85-1.17); PROTIME 27.7 SECONDS (11.6-15.0)
[2018-05-18 05:12] LABS: ALBUMIN 1.9 g/dL (3.4-5.0); ANION GAP 30.9 mmol/L (8-16); BILIRUBIN - TOTAL 9.57 mg/dL (0.2-1.3); CALCIUM 7.3 mg/dL (8.5-10.1); CARBON DIOXIDE 23.8 mmol/L (21.0-32.0); CREATININE - SERUM 4.1 mg/dL (0.6-1.3); PHOSPHOROUS 5.5 mg/dL (2.5-4.9); POTASSIUM - SERUM 3.7 mmol/L (3.5-5.1)
[2018-05-24 19:10] LABS: AEROBE ID Final report (()); RESULT 1 Pantoea species (())
== END 2018-05-18 19:15 | DRG 405 ==
LOC: D.SDCHOLD 07:15 → D.ICU 07:15 → D.SDCHOLD 11:00 → D.ICU 20:16
PROVIDERS: Internal Medicine; Surgery
PROC: 0FT40ZZ Resection of Gallbladder, Open Approach (ICD-10-PCS; 2018-05-13)
PROC: 0FT Hepatobiliary System and Pancreas, Resection (ICD-10-PCS; 2018-05-13)
PROC: 0D870ZZ Division of Stomach, Pylorus, Open Approach (ICD-10-PCS; 2018-05-13)
PROC: 05H533Z Insertion of Infusion Device into Right Subclavian Vein, Percutaneous Approach (ICD-10-PCS; 2018-05-13)
PROC: 0FBG0ZZ Excision of Pancreas, Open Approach (ICD-10-PCS; principal; 2018-05-13 11:00)
PROC: 0DT90ZZ Resection of Duodenum, Open Approach (ICD-10-PCS; 2018-05-13 11:00)
PROC: 5A1945Z Respiratory Ventilation, 24-96 Consecutive Hours (ICD-10-PCS; 2018-05-16)
PROC: 0BH17EZ Insertion of Endotracheal Airway into Trachea, Via Natural or Artificial Opening (ICD-10-PCS; 2018-05-16)
DX: C25.9 Malignant neoplasm of pancreas, unspecified (principal); J96.02 Acute respiratory failure with hypercapnia; N17.0 Acute kidney failure with tubular necrosis; A41.9 Sepsis, unspecified organism; R65.21 Severe sepsis with septic shock; J15.6 Pneumonia due to other Gram-negative bacteria; K72.00 Acute and subacute hepatic failure without coma; E87.2 Acidosis; D62 Acute posthemorrhagic anemia; D68.9 Coagulation defect, unspecified; J44.1 Chronic obstructive pulmonary disease with (acute) exacerbation; M81.0 Age-related osteoporosis without current pathological fracture; Y95 Nosocomial condition; I34.0 Nonrheumatic mitral (valve) insufficiency; I07.1 Rheumatic tricuspid insufficiency; F17.200 Nicotine dependence, unspecified, uncomplicated; E87.5 Hyperkalemia; K21.9 Gastro-esophageal reflux disease without esophagitis; R00.0 Tachycardia, unspecified; I95.9 Hypotension, unspecified; E11.9 Type 2 diabetes mellitus without complications